=== PATIENT | male | born 1985 | race Caucasian/White ===

== ENCOUNTER 2022-12-05 07:55 | Emergency (ER) | payer BC ==
[2022-12-05] MEDS ORDERED: ONDANSETRON 4 MG/2 ML VIAL ONE (08:17)
[2022-12-05] MEDS ORDERED: KETOROLAC 30 MG/ML INJ ONE (08:17)
[2022-12-05] MEDS ORDERED: NA CHLORIDE 0.9% 1,000 ML ONE (08:17)
[2022-12-05 08:23] LABS: Absolute Lymphocytes (CBC) 1.9 K/uL (0.7-4.9); Hematocrit 46.9 % (39.6-49.0); Lymphocytes % 15.2 % (15.3-44.8); MCV 88.7 fL (80-100); MPV 7.4 fL (7.6-11.3); RBC Red Blood Cell Count 5.29 M/uL (4.33-5.43)
--- NOTE | 2022-12-05 08:33 | RAD REPORT ---
EXAM DESCRIPTION: CT - Stone Protocol - 12/05/2022 8:18 am CLINICAL HISTORY: Flank pain. ABD PAIN COMPARISON: No comparisons TECHNIQUE: Axial images were obtained without oral or IV contrast. Lack of contrast limits solid org an and vascular assessment. The [id number] spans the entirety of the system partially obscuring uppermost abdomen and lung bases. Coronal reformatted images were obtained and reviewed. All CT scans are performed using dose optimization technique as appropriate and may include automated exposure control or mA/KV adjustment according to patient size. FINDINGS: The lower lung knight are clear. Imaged portions of the liver and spleen show no suspicious findings on non-contrast imaging. The panc reas and right adrenal gland are normal.21 mm left adrenal mass is present, likely adenoma. No pathol ogic lymphadenopathy in the abdomen or pelvis. Punctate calcification left kidney midpole calyx likely compatible with nonobstructing calculus. No r ight-sided stone or hydronephrosis. No bowel obstruction, free air, free fluid or abscess. Normal appendix noted. No significant bony abnormality. IMPRESSION: Punctate left renal calculus without hydronephrosis. 21 mm left adrenal mass, likely an adenoma.
[2022-12-05 08:43] LABS: Albumin 3.8 g/dL (3.4-5.0); Bilirubin Total 0.5 mg/dL (0.2-1.0); Potassium 3.9 mEq/L (3.5-5.1); Protein, Total 8.1 g/dL (6.4-8.2)
[2022-12-05 10:07] LABS: Specific Gravity 1.026 (1.005-1.030); Urine Bacteria None Seen /HPF (<20); Urine Bilirubin NEGATIVE (Negative); Urine Blood Negative (Negative); Urine Clarity Extremely Turbid (Clear); Urine Color Yellow (Yellow); Urine Glucose NEGATIVE (Negative); Urine Mucus Slight /HPF (None Seen); Urine Protein 1+ (Negative); Urine Urobilinogen 1+ (Normal)
--- NOTE | 2022-12-05 10:14 | ER ---
Nurse's Notes [facility] Name: Laith Standard Age: 37 yrs Sex: Male : 1985 Arrival Date: 12/05/2022 Time: 07:55 Bed 6 Private MD: Diagnosis: Low back pain;Lower abdominal pain, unspecified Presentation: 12/05 08:06 Chief complaint: Patient states: lower abd pain, more on the right that wraps towards ss right side of back that began 2 nights ago. Coronavirus screen: Client denies travel out of the [place] in the last 14 days. Ebola Screen: Patient denies exposure to infectious person. Patient denies travel to an Ebola-affected area in the 21 days before illness onset. Initial Sepsis Screen: Does the patient meet any 2 criteria? No. Patient's initial sepsis screen is negative. Does the patient have a suspected source of infection? No. Patient's initial sepsis screen is negative. Risk Assessment: Do you want to hurt yourself or someone else? Patient reports no desire to harm self or others. Onset of symptoms was December 03, 2022. 08:06 Method Of Arrival: Ambulatory ss 08:06 Acuity: MAURICE 3 ss Historical: - Allergies: 08:07 No Known Allergies; ss - Home Meds: 08:07 Metoprolol [Active]; Metformin Oral [Active]; Lexapro Oral [Active]; ss - PMHx: 08:07 Depressive disorder; Hypertensive disorder; ss - PSHx: 08:07 None; ss - Immunization history:: Client reports receiving the 2nd dose of the Covid vaccine. - Social history:: Smoking status: Patient reports the use of cigarette tobacco products, smokes one pack cigarettes per day. Screenin:00 [facility] ED Fall Risk Assessment (Adult) History of falling in the last 3 months, ko1 including since admission No falls in past 3 months (0 pts) Confusion or Disorientation No (0 pts) Intoxicated or Sedated No (0 pts) Impaired Gait No (0 pts) Mobility Assist Device Used No (0 pt) Altered Elimination No (0 pt) Score/Fall Risk Level 0 - 2 = Low Risk Oriented to surroundings, Maintained a safe environment, Educated pt \T\ family on fall prevention, incl call for assistance when getting out of bed, Assessed \T\ reinforced patient's understanding of fall precautions, Provided non-skid footwear, Hourly rounding (assess needs \T\ fall precautionary measures) done, Used ambulatory aids as needed (educated on \T\ assisted with), Used gait belt as appropriate. Abuse screen: Denies threats or abuse. Denies injuries from another. Nutritional screening: No deficits noted. Tuberculosis screening: No symptoms or risk factors identified. Assessment: 08:00 General: Appears in no apparent distress. uncomfortable, Behavior is calm, cooperative, ko1 appropriate for age. Pain: Complains of pain in right lower quadrant. Neuro: No deficits noted. Cardiovascular: No deficits noted. Respiratory: No deficits noted. GI: Bowel sounds present X 4 quads. Abd is soft X 4 quads. : No deficits noted. EENT: No deficits noted. Derm: No deficits noted. Musculoskeletal: No deficits noted. Vital Signs: 08:00 BP 128 / 80; Pulse 68; Resp 18; Pulse Ox 99% on R/A; ko1 08:06 BP 129 / 78; Pulse 62; Resp 16; Pulse Ox 100% on R/A; Weight 136.08 kg; Height 6 ft. 0 ss in. ; Pain 5/10; 09:19 BP 108 / 59; Pulse 75; Resp 16; Pulse Ox 96% on R/A; ko1 10:15 BP 111 / 63; Pulse 75; Resp 18; Pulse Ox 97% ; ko1 08:06 Body Mass Index 40.69 (136.08 kg, 182.88 cm) ss 08:06 Pain Scale: Adult ss ED Course: 07:57 Patient arrived in ED. am2 07:58 Caroline Fernandez FNP-C [facility]. kb 07:58 Charli Ramires MD is Attending Physician. kb 08:00 Patient has correct armband on for positive identification. Bed in low position. Call ko1 light in reach. Side rails up X 1. Pulse ox on. NIBP on. Door closed. Warm blanket given. 08:00 Inserted saline lock: 20 gauge in right antecubital area, using aseptic technique. ko1 Blood collected. 08:05 Meenu Rush, IVAN is Primary Nurse. ko1 08:07 Triage completed. ss 08:07 Arm band placed on right wrist. ss 08:18 CBC with Diff Sent. ko1 08:18 CMP Sent. ko1 08:18 Lipase Sent. ko1 08:20 CT Stone Protocol In Process Unspecified. EDMS 09:45 Urinalysis w/ reflexes Sent. ko1 10:23 No provider procedures requiring assistance completed. IV discontinued, intact, ko1 bleeding controlled, No redness/swelling at site. Pressure dressing applied. Administered Medications: 08:17 Drug: Ondansetron IVP 4 mg Route: IVP; Site: right antecubital; ko1 08:18 Drug: TORadol - Ketorolac IVP 15 mg Route: IVP; Site: right antecubital; ko1 08:21 Drug: NS 0.9% IV 1000 ml Route: IV; Rate: 1 bolus; Site: right antecubital; ko1 Medication: 10:23 VIS not applicable for this client. ko1 Outcome: 10:14 Discharge ordered by . kb 10:23 Discharged to home ambulatory. ko1 10:23 Condition: improved 10:23 Discharge instructions given to patient, Instructed on discharge instructions, follow up and referral plans. medication usage, Demonstrated understanding of instructions, follow-up care, medications, Prescriptions given X 2. 10:23 Patient left the ED. ko1 Signatures: Dispatcher [employer] EDMS Caroline Fernandez, FARM TRUCK DRIVER-C FARM TRUCK DRIVER-CkViolet Tanner, RN RN Ana Luisa Menon Kathy, RN RN ko1
--- NOTE | 2022-12-05 10:14 | EDPHYS ---
Physician Documentation [facility] Name: Laith Standard Age: 37 yrs Sex: Male : 1985 Arrival Date: 12/05/2022 Time: 07:55 Bed 6 Private MD: ANNE MARIE Physician Charli Ramires HPI: 12/05 08:06 This 37 yrs old Male presents to ER via Unassigned with complaints of Abdominal Pain. kb 08:06 The patient presents with abdominal pain right lower quadrant. Onset: The kb symptoms/episode began/occurred 3 day(s) ago. The symptoms radiate to the right flank. Associated signs and symptoms: none. The symptoms are described as constant. Modifying factors: The symptoms are alleviated by nothing, the symptoms are aggravated by movement. Severity of pain: At its worst the pain was moderate in the emergency department the pain is unchanged. The patient has not experienced similar symptoms in the past. The patient has not recently seen a physician. Historical: - Allergies: 08:07 No Known Allergies; ss - Home Meds: 08:07 Metoprolol [Active]; Metformin Oral [Active]; Lexapro Oral [Active]; ss - PMHx: 08:07 Depressive disorder; Hypertensive disorder; ss - PSHx: 08:07 None; ss - Immunization history:: Client reports receiving the 2nd dose of the Covid vaccine. - Social history:: Smoking status: Patient reports the use of cigarette tobacco products, smokes one pack cigarettes per day. ROS: 08:06 Constitutional: Negative for fever, chills, and weight loss. kb 08:06 Abdomen/GI: Positive for abdominal pain, Negative for nausea, vomiting, and diarrhea. 08:06 All other systems are negative. Exam: 08:06 Constitutional: This is a well developed, well nourished patient who is awake, alert, kb and in no acute distress. Head/Face: Normocephalic, atraumatic. ENT: Moist Mucous membranes Cardiovascular: Regular rate and rhythm with a normal S1 and S2. No gallops, murmurs, or rubs. No pulse deficits. Respiratory: Respirations even and unlabored. No increased work of breathing. Talking in full sentences Skin: Warm, dry with normal turgor. Normal color. MS/ Extremity: Pulses equal, no cyanosis. Neurovascular intact. Full, normal range of motion. Neuro: Awake and alert, GCS 15, oriented to person, place, time, and situation. Moves all extremities. Normal gait. 08:06 Abdomen/GI: Inspection: abdomen appears normal, Bowel sounds: normal, Palpation: soft, in all quadrants, mild abdominal tenderness, in the right lower quadrant. Vital Signs: 08:00 BP 128 / 80; Pulse 68; Resp 18; Pulse Ox 99% on R/A; ko1 08:06 BP 129 / 78; Pulse 62; Resp 16; Pulse Ox 100% on R/A; Weight 136.08 kg; Height 6 ft. 0 ss in. ; Pain 5/10; 09:19 BP 108 / 59; Pulse 75; Resp 16; Pulse Ox 96% on R/A; ko1 10:15 BP 111 / 63; Pulse 75; Resp 18; Pulse Ox 97% ; ko1 08:06 Body Mass Index 40.69 (136.08 kg, 182.88 cm) ss 08:06 Pain Scale: Adult ss MDM: 07:58 Patient medically screened. kb 08:06 Differential diagnosis: appendicitis, diverticulitis, gastritis, non-specific abd pain, kb Pyelonephritis, Ureterolithiasis, urinary tract infection. Data reviewed: vital signs, nurses notes. 10:10 Counseling: I had a detailed discussion with the patient and/or guardian regarding: the kb historical points, exam findings, and any diagnostic results supporting the discharge/admit diagnosis, lab results, radiology results, the need for outpatient follow up, a family practitioner, to return to the emergency department if symptoms worsen or persist or if there are any questions or concerns that arise at home. 12/05 08:05 Order name: CBC with Diff; Complete Time: 08:26 kb 12/05 08:05 Order name: CMP; Complete Time: 08:43 kb 12/05 08:05 Order name: Lipase; Complete Time: 08:43 kb 07 08:05 Order name: Urinalysis w/ reflexes; Complete Time: 10:10 kb 12/05 08:05 Order name: CT Stone Protocol; Complete Time: 08:40 kb 12/05 08:05 Order name: IV Saline Lock; Complete Time: 08:17 kb 12/05 08:05 Order name: Labs collected and sent; Complete Time: 08:17 kb Administered Medications: 08:17 Drug: Ondansetron IVP 4 mg Route: IVP; Site: right antecubital; ko1 08:18 Drug: TORadol - Ketorolac IVP 15 mg Route: IVP; Site: right antecubital; ko1 08:21 Drug: NS 0.9% IV 1000 ml Route: IV; Rate: 1 bolus; Site: right antecubital; ko1 Disposition Summary: 12/05/22 10:14 Discharge Ordered Location: Home kb Condition: Stable kb Diagnosis - Low back pain kb - Lower abdominal pain, unspecified kb Followup: kb - With: Emergency Department - When: As needed - Reason: Worsening of condition Followup: kb - With: Private Physician - When: 2 - 3 days - Reason: Recheck today's complaints, Continuance of care, Re-evaluation by your physician Discharge Instructions: - Discharge Summary Sheet kb - Musculoskeletal Pain kb - Abdominal Pain, Adult, [id number] kb Forms: - Medication Reconciliation Form kb - Thank You Letter kb - Antibiotic Education kb - Prescription Opioid Use kb - [email or web address] kb Prescriptions: - Ibuprofen 800 mg Oral Tablet - take 1 tablet by ORAL route every 8 hours As needed take with food; 30 tablet; kb Refills: 0, Product Selection Permitted - orphenadrine citrate 100 mg Oral Tablet Sustained Release - take 1 tablet by ORAL route 2 times per day As needed; 20 tablet; Refills: 0, kb Product Selection Permitted Signatures: Dispatcher [employer] Caroline Javier FNP-C FNP-Violet Dhaliwal RN RN ss Meenu Rush RN RN ko1 Corrections: (The following items were deleted from the chart) 10:35 08:06 Modifying factors: The symptoms are alleviated by nothing, the symptoms are kb aggravated by nothing. kb
[2022-12-05 10:33] VITALS: BP 111/63; O2SAT 97
== END 2022-12-05 10:23 | disposition home or self-care (01) ==
LOC: ER 07:55
DX: M54.50 Low back pain, unspecified (principal); R10.31 Right lower quadrant pain; F17.210 Nicotine dependence, cigarettes, uncomplicated; I10 Essential (primary) hypertension; F32.A Depression, unspecified
CPT/HCPCS: 85025; 81001; 36415; 83690; 80053; 76377; 74176; 96375; 96374; 99284; J2405; J7030